=== PATIENT | male | born 1965 | race Hispanic/Latino ===

== ENCOUNTER 2016-12-15 11:28 | Emergency (ER) | payer OTHER ==
[~2016-12-15] VITALS: Ht 162.6 cm; Wt 80.0 kg
[~2016-12-15 11:28] MED LIST: ACET1TAB12 PO; ACET325T51 PO; FL.025O15 TOPICAL; METH750T3 PO; NPR500T PO
[2016-12-15 11:43] VITALS: BP 132/87; RESP 16; O2SAT 100
--- NOTE | 2016-12-15 12:08 | ED.REPORT ---
HPI-Ear Pain/Problem/FB Date of Service Dec 15, 2016 ED Provider: Richar Meléndez MD The patient is a 51 year old male who presents to the emergency department complaining of right ear pain and drainage that has been worsening over the last 2 weeks. Initially he also had a cough, subjective fever, and congestion. He was seen in an ED in [place] on 12/05 and placed on antibiotics. He finished the antibiotics about 1 week ago. His pain and symptoms had initially improved. He presents today because he was unable to get in to see his PCP and the pain has returned. He denies current fever, congestion or cough, chills, vomiting or diarrhea. Nursing Notes Stated Complaint: OBJECT IN INNER EAR Chief Complaint: ENT & Mouth Nursing Notes Reviewed: Yes Allergies: Coded Allergies: No Known Allergies (Verified Allergy, Unknown, 12/15/16) Scheduled Amoxicillin/Clav K 875-125 mg (Augmentin 875-125 mg) 1 Each Tablet 1 TABLET PO BID Ciprofloxacin/Dexameth Otic Susp (Ciprodex Otic Susp) 15 Drop/Ml Oticsoln 4 DROP RIGHT_EAR BID Fluocinolone 0.025% Oint (Fluocinolone 0.025% Oint) 60 Applic/15 Gm Oint 1 APPLIC TOPICAL BID Scheduled PRN Acetaminophen (Acetaminophen) 325 Mg Tablet 650 MG PO QID PRN PRN For Pain Acetaminophen/Codeine 300-30mg (Tylenol/Codeine #3) 1 Each Tablet 1-2 TABLET PO Q4H PRN PRN Pain Acetaminophen/Codeine 300-30mg (Tylenol/Codeine #3) 1 Each Tablet 1 TABLET PO QPM PRN PRN Pain Hydrocodone-Acetaminophen 5-325 mg (Hydrocodone-Acetaminophen 5-325 mg) 1 Each Tablet 1 TABLET PO Q4H PRN PRN For Pain Methocarbamol (Methocarbamol) 750 Mg Tablet 750 MG PO QID PRN PRN For Spasm Naproxen (Naproxen) 500 Mg Tab 500 MG PO BID PRN PRN For Pain Naproxen (Naproxen) 500 Mg Tab 500 MG PO BID PRN PRN For Pain General Time Seen by MD: 11:53 Chief Complaint Ear problem right, Pain, Discharge Hx Obtained From: Patient Arrived By: Walk-in Onset Occurred: More than a week ago... Symptom Duration: Since onset Quality: Painful Severity: Current: Moderate Severity: Maximum: Severe Recent Healthcare: No recent hospitalization, Recent doctor visit Similar Sx Previous: No Past Medical History Past Medical History Back pain Reports: Hypertension Past Surgical History Denies Family History noncontributory Smoking History Unknown if Ever Smoker Social History Drug Use: Denies drug use Other Social History: Local resident Ambulatory Status Independent Review of Systems Constitutional: Denies: Chills, Fever Ears / Nose / Throat: Reports: Ear drainage right, Earache right, Denies: Nasal congestion Complete sys rev & neg: except as marked. Additional Review of Systems Respiratory: Denies: Non-productive cough GI: Denies: Diarrhea, Vomiting Physical Exam Initial Vital Signs Vital Signs (First) Date Time Temp Pulse Resp B/P Pulse Ox O2 Delivery O2 Flow Rate FiO2 12/15/16 11:43 36.4 77 16 132/87 100 Room Air Initial VS: Reviewed Head / Eyes: Atraumatic, Normocephalic, PERRL Neck: Supple, Non-tender, Full range of motion Respiratory: Breath sounds normal, Clear to auscultation, No respiratory distress Cardiovascular: Regular rate & rhythm, Heart sounds normal, Intact distal pulses Abdomen / GI: Soft, Non-tender, No guarding, No rebound, No distention Lymphatic: No lymphadenopathy Extremities: Vascular intact, Neuro intact, No swelling, No tenderness Skin: Warm, Dry, No cyanosis Neurologic: Alert, Oriented, Nonfocal Psychiatric: Mood/affect normal, Behavior normal, Normal thought content General/Constitutional: Awake, Alert, Cooperative ENT: Airway patent, Mucous membranes moist Right Ear / Mastoid: Positive: External canal red, Fluid behind TM purulent, Tympanic membrane red (with effusion) Left Ear / Mastoid: Negative: Fluid behind TM clear, Fluid behind TM purulent, Tympanic memb perforated, Tympanic memb retracted, Tympanic membrane bulging, Tympanic membrane red Re-Eval/Medical Decision Med Decision/Clinical Course R AOM/AOE. Augmentin given recent AOM 2 weeks ago and ciprodex drops for AOE. F/u PMD 2 days. Return if new/worsening symptoms. Source of Hx: Old records Re-Evaluation/Progress : Time of Eval: 12:12 Re-Evaluation/Progress Note: Disussed exam findings, diagnosis, and plan for discharge. All questions were addressed. Counseled Regarding: Diagnosis, Need for follow-up, When/why to return to ED Discharge & Departure Primary Impression: Otitis externa Otitis externa type: diffuse Laterality: right Chronicity: acute Qualified Code: H60.311 - Diffuse otitis externa, right ear Additional Impression: Otitis media Otitis media type: unspecified Laterality: right Chronicity: unspecified Qualified Code: H66.91 - Otitis media, unspecified, right ear Disposition: Home Discharge Condition All VS Reviewed: Yes Condition: Stable Patient Instructions: Otitis Media (ED), Otitis Externa (ED) Additional Instructions: Thank you for entrusting us with your care today. Your exam findings are consistent with an ear infection. Use the antibiotics as prescribed. Use ibuprofen as needed for your pain. Followup with your regular doctor next week for recheck. Seek care sooner if your pain increases or if you develop a fever, chills, vomiting, or any other new or concerning symptoms. Lori por confiarnos pearl cuidado hoy. Los resultados del examen son consistentes con elyse infeccin del odo. Utilice los antibiticos segn lo prescrito. Use ibuprofeno segn sea necesario para pearl dolor. Seguimiento con pearl mdico regular la prxima semana para volver a justin. Busque atencin antes si pearl dolor aumenta o si presenta fiebre, escalofros, vmitos o cualquier otro s ntoma nuevo o relacionado. Referrals: Mercy Daniels MD (PCP) Scribe Attestation Portions of this note were transcribed by Lucy Moran. I, Dr. Meléndez personally performed the history, physical exam and medical decision-making; I reviewed and confirmed the accuracy of the information in the transcribed note. Signed by: Dana Hyman, 12/15/2016 at 1230. copies to: Mercy Daniels MD, Ben M MD Dec 15, 2016 12:08 Lucy Moran Dec 15, 2016 12:16
[2016-12-15] MEDS ORDERED: AMOX-366 PO (12:21)
[2016-12-15] MEDS ORDERED: CIPRODEX RIGHT_EAR (12:21)
[2016-12-15] MEDS ORDERED: HYDR-4003 PO (12:22)
[2016-12-15 12:48] VITALS: BP 132/87; PULSE 77; RESP 16; O2SAT 100
== END 2016-12-15 12:48 | disposition home or self-care (01) ==
LOC: SED 11:28
DX: H60.311 Diffuse otitis externa, right ear (principal); H66.91 Otitis media, unspecified, right ear; I10 Essential (primary) hypertension